=== PATIENT | male | born 1975 | race Caucasian/White ===

== ENCOUNTER 2019-08-06 20:02 | Emergency (ER) | payer OTHER ==
[2019-08-06] MEDS ORDERED: LIDOCAINE 1% 10 ML VIAL INJ ONE (20:32)
[2019-08-06] MEDS ORDERED: CHLORHEXIDINE GLUCONATE 4 % 15 ML UD TOP ONE (20:32)
[2019-08-06 20:41] VITALS: BP 116/94; TEMP 97.6; O2SAT 98
[2019-08-06] MEDS ORDERED: AMOXICILLIN & POT CLAVULANATE 875 MG TAB PO ONE (21:05)
--- NOTE | 2019-08-06 21:08 | ED.PDOC ---
History of Present Illness - General Chief Complaint: Laceration Stated Complaint: left ear laceration Time Seen by Provider: 08/06/19 20:15 Source: patient Exam Limitations: no limitations - History of Present Illness Initial Comments: Patient is a 44-year-old male presented emergency room secondary to having fallen while on a boat and hit the edge of the boat with his left ear. The patient has sustained a laceration through the lower third of the ear through the outer aspect of the earlobe and at least partially through the antitragus. No hearing loss. No evidence of any concussion. No neck pain. The patient defers a tetanus shot. He is uncertain if he is up-to-date. Timing/Duration: momentarily Severity: moderate Improving Factors: nothing Worsening Factors: nothing Associated Symptoms: denies symptoms Allergies/Adverse Reactions: Allergies NO KNOWN ALLERGY Allergy (Verified 08/06/19 20:41) Home Medications: Ambulatory Orders Amoxicillin & Pot Clavulanate [Augmentin Tab] 875 mg PO BID #14 tab 08/06/19 Review of Systems - Review of Systems Constitutional: States: no symptoms reported EENTM: States: see HPI Respiratory: States: no symptoms reported Cardiology: States: no symptoms reported Gastrointestinal/Abdominal: States: no symptoms reported Genitourinary: States: no symptoms reported Musculoskeletal: States: no symptoms reported Skin: States: no symptoms reported Neurological: States: no symptoms reported Endocrine: States: no symptoms reported All other Systems: No Change from Baseline Past Medical History (General) - Patient Medical History Hx Seizures: No Hx Stroke: No Hx Dementia: No Hx Asthma: No Hx of COPD: No Hx Cardiac Disorders: No Hx Congestive Heart Failure: No Hx Pacemaker: No Hx Hypertension: No Hx Thyroid Disease: No Hx Diabetes: No Hx Gastroesophageal Reflux: No Hx Renal Disease: No Hx Cancer: No Hx Hepatitis C: No Surgical History: no surgical history - Vaccination History Hx Tetanus, Diphtheria Vaccination: No Hx Influenza Vaccination: No - Social History Hx Tobacco Use: No Hx Alcohol Use: Yes - occ Family Medical History - Family History Mother Family History: Unknown Physical Exam - Physical Exam General Appearance: Alert, Comfortable, No apparent distress Eye Exam: bilateral normal Ears, Nose, Throat: hearing grossly normal, normal pharynx, other - See history of present illness. Laceration length is probably an inch long Neck: non-tender, full range of motion, supple Respiratory: no respiratory distress, no accessory muscle use Cardiovascular/Chest: normal peripheral pulses, no edema Peripheral Pulses: radial,right: 2+, radial,left: 2+ Rectal Exam: deferred Back Exam: normal inspection Extremity: normal range of motion, no pedal edema, normal capillary refill Neurologic: hands hanger II-XII nml as tested, alert, normal mood/affect, oriented x 3 Skin Exam: normal color - Laceration to the left ear as above Comments: Vital Signs - 24 hr 08/06/19 20:25 Temperature 97.6 F Pulse Rate [ 97 H monitor] Respiratory 18 Rate Blood Pressure 116/94 [Left Arm] O2 Sat by Pulse 98 Oximetry Progress - Progress Progress: 08/06/19 21:08 The patient is a 44-year-old male presented emergency room secondary to laceration to the left ear that occurred [place] accidentally. Repair was done with 5-0 Ethilon with 10 simple sutures. Patient tolerated this well and was started on Augmentin and will be continued on Augmentin for 7 days. Sutures need to come out in around 9 or 10 days. Triple antibiotic ointment can be applied a couple of times daily and after 24 hours wound can be washed gently with antibacterial soap and water twice daily. He needs to avoid putting pressure on the ear or sleeping on that side. He does need to monitor for any evidence of infection. Blood supply to both sides of the laceration appears to be adequate at this time. He will likely have a area of numbness surrounding the cut however. No evidence of significant hearing loss. ER warnings are given. Tetanus shot with his primary care doctor is still recommended. Risk and benefits of repair were explained and patient agreed to proceed. Wound is cleaned with hydrogen peroxide. Xylocaine without epinephrine x6 cc was used as a local anesthetic. 10 simple sutures of 5-0 Ethilon were used for reapproximation. Good hemostasis was obtained as well as what appears to be adequate aesthetic effect. Sutures can come out in 9 or 10 days. Estimated blood loss is 5 cc. jessica alvares [id number] Departure - Departure Clinical Impression: Laceration of ear region Qualifiers: Encounter type: initial encounter Laterality: left Qualified Code(s): S01.312A - Laceration without foreign body of left ear, initial encounter Disposition: Discharge to Home or Self Care Departure Forms: ED Discharge - Pt. Copy, Patient Portal Self Enrollment Instructions: DI for Laceration Repair, DI for Laceration Repair -- Simple Diet: regular diet Activity: increase activity as tolerated Prescriptions: Amoxicillin & Pot Clavulanate [Augmentin Tab] 875 mg PO BID #14 tab Home Medications: Ambulatory Orders Amoxicillin & Pot Clavulanate [Augmentin Tab] 875 mg PO BID #14 tab 08/06/19 Additional Instructions: The patient is a 44-year-old male presented emergency room secondary to laceration to the left ear that occurred while [place] the [place] accidentally. Repair was done with 5-0 Ethilon with 10 simple sutures. Patient tolerated this well and was started on Augmentin and will be continued on Augmentin for 7 days. Sutures need to come out in around 9 or 10 days. Triple antibiotic ointment can be applied a couple of times daily and after 24 hours wound can be washed gently with antibacterial soap and water twice daily. He needs to avoid putting pressure on the ear or sleeping on that side. He does need to monitor for any evidence of infection. Blood supply to both sides of the laceration appears to be adequate at this time. He will likely have a area of numbness surrounding the cut however. No evidence of significant hearing loss. ER warnings are given. Tetanus shot with his primary care doctor is still recommended.
== END 2019-08-06 21:18 | disposition home or self-care (01) ==
LOC: ER 20:02
DX: S01.312A Laceration without foreign body of left ear, initial encounter (principal); W19.XXXA Unspecified fall, initial encounter; Y92.828 Other wilderness area as the place of occurrence of the external cause